=== PATIENT | male | born 1970 | race Caucasian/White ===

== ENCOUNTER 2024-02-18 06:29 | Day surgery (SDC) | payer OTHER ==
[~2024-02-18] VITALS: Ht 193 cm; Wt 106.9 kg
[~2024-02-18 06:29] MED LIST: Balanced Salt Epinephrine Irrigation Solution 500 mL IR SCH; Lidocaine HCl/Pf 1% 5 ML VIAL XX SCH; Moxifloxacin HCL 0.5 MG/0.1 ML 0.4MLSYR LEFTEYE SCH; PHENYLEPHRINE\\TROPICAMIDE\\TETRACAINE OPHTHALMIC DILATING SOLN LEFTEYE PRN; Povidone-Iodine 450 DROP/30 ML Solution LEFTEYE SCH; Tetracaine HCl 0.5% Opth Soln 15 ml ONE; Tropicamide 1% Opth Soln 15 ML BTL ONE
[2024-02-18] MEDS ORDERED: Lidocaine HCl/Pf 1% 5 ML VIAL ONE (06:56)
[2024-02-18] MEDS ORDERED: OMEP20ER PO (07:16)
[2024-02-18] MEDS ORDERED: BUPROPION XL150 M1 PO (07:17)
--- NOTE | 2024-02-18 07:30 | NUR ---
02/18/24 0730 Ale Olsen 0706: WHEN ASKED HOW HE WAS FEELING THIS MORNING ABOUT THE PROCEDURE PT STATED "I'M FINE". WHEN ASKED ABOUT ANXIOUS SCALE, PT REPORTED "IT IS MY EYE, I'M NERVOUS, MAYBE A 4/10". RN CLARIFIED "SO ALMOST FPC TO THE MOST ANXIOUS YOU COULD BE?" PATIENT RESPONDED "YES, I MEAN IT IS MY EYE, I'M ANXIOUS." RN DISCUSSED WITH DR TONY. 0715: DR TONY DISCUSSED WITH PATIENT WHETHER VALIUM HE TOOK AT HOME (PATIENT REPORTS TAKING AT 0615) HAS TAKEN EFFECT, PT STATES YES, DR TONY INFORMS PATIENT TO LET RN KNOW IF HE NEEDS MORE. PATIENT VERBALIZED UNDERSTANDING.
[2024-02-18] MEDS ORDERED: Ondansetron HCl 2 MG / ML 2ML Vial ONE (07:50)
[2024-02-18 08:18] VITALS: BP 134/91
== END 2024-02-18 08:29 | disposition home or self-care (01) ==
LOC: ORSCSDS 06:29
PROVIDERS: Student in an Organized Health Care Education/Training Program
PROC: 08RK3JZ Replacement of Left Lens with Synthetic Substitute, Percutaneous Approach (ICD-10-PCS; principal; 2024-02-18 08:00)
DX: H25.813 Combined forms of age-related cataract, bilateral (principal); F32.A Depression, unspecified; K21.9 Gastro-esophageal reflux disease without esophagitis; Z79.899 Other long term (current) drug therapy
CPT/HCPCS: J2003; J2405; V2632